=== PATIENT | male | born 1960 | race Caucasian/White ===

== ENCOUNTER → 2023-08-05 08:47 | Outpatient (REF) | payer MEDICARE, OTHER, SELFPAY | LOC: MRI 3T 08:47 | PROVIDERS: ATTENDING PHYSICIAN Specialist; FAMILY PHYSICIAN Physician Assistant Medical | DX: M25.812 Other specified joint disorders, left shoulder (principal) | CPT/HCPCS: 73221 ==

== ENCOUNTER → 2024-03-03 07:52 | Outpatient (REF) | payer MEDICARE, SELFPAY | LOC: RAD 07:52 | PROVIDERS: ATTENDING PHYSICIAN Specialist; FAMILY PHYSICIAN Physician Assistant Medical | DX: M25.512 Pain in left shoulder (principal); M75.42 Impingement syndrome of left shoulder | CPT/HCPCS: 73200 ==

== ENCOUNTER 2024-04-26 09:56 | Outpatient (RCR) | payer MEDICARE, SELFPAY | END 2024-04-26 23:59 | disposition home or self-care (01) | LOC: RPT 09:56 | PROVIDERS: ATTENDING PHYSICIAN Physician Assistant Surgical; FAMILY PHYSICIAN Physician Assistant Medical | DX: M75.32 Calcific tendinitis of left shoulder (principal); Z98.890 Other specified postprocedural states; Z73.6 Limitation of activities due to disability | CPT/HCPCS: 97010; 97110; 97140; 97162 ==

== ENCOUNTER 2024-05-28 09:59 | Outpatient (RCR) | payer MEDICARE, SELFPAY | END 2024-05-28 23:59 | disposition home or self-care (01) | LOC: RPT 09:59 | PROVIDERS: ATTENDING PHYSICIAN Physician Assistant Surgical; FAMILY PHYSICIAN Physician Assistant Medical | DX: M75.32 Calcific tendinitis of left shoulder (principal); Z47.1 Aftercare following joint replacement surgery (principal); Z96.612 Presence of left artificial shoulder joint; Z98.890 Other specified postprocedural states; Z73.6 Limitation of activities due to disability | CPT/HCPCS: 97010; 97110; 97112; 97140 ==

== ENCOUNTER 2024-06-21 09:58 | Outpatient (RCR) | payer MEDICARE, SELFPAY | END 2024-06-21 23:59 | disposition home or self-care (01) | LOC: RPT 09:58 | PROVIDERS: ATTENDING PHYSICIAN Physician Assistant Surgical; FAMILY PHYSICIAN Physician Assistant Medical | DX: Z47.1 Aftercare following joint replacement surgery (principal); Z73.6 Limitation of activities due to disability; M62.81 Muscle weakness (generalized); Z96.612 Presence of left artificial shoulder joint; M75.32 Calcific tendinitis of left shoulder; Z98.890 Other specified postprocedural states | CPT/HCPCS: 97010; 97110; 97112 ==

== ENCOUNTER → 2024-07-13 14:26 | Outpatient (REF) | payer MEDICARE, SELFPAY | LOC: HWRAD 14:26 | PROVIDERS: ATTENDING PHYSICIAN Specialist; FAMILY PHYSICIAN Physician Assistant Medical | DX: Z96.612 Presence of left artificial shoulder joint (principal) | CPT/HCPCS: 73200 ==

== ENCOUNTER 2024-08-16 10:58 | Outpatient (RCR) | payer MEDICARE, SELFPAY | END 2024-08-16 23:59 | disposition home or self-care (01) | LOC: RPT 10:58 | PROVIDERS: ATTENDING PHYSICIAN Physician Assistant Surgical; FAMILY PHYSICIAN Physician Assistant Medical | DX: Z47.1 Aftercare following joint replacement surgery (principal); Z96.612 Presence of left artificial shoulder joint; Z73.6 Limitation of activities due to disability; M62.81 Muscle weakness (generalized); M75.32 Calcific tendinitis of left shoulder; Z98.890 Other specified postprocedural states | CPT/HCPCS: 97010; 97110; 97140 ==

== ENCOUNTER → 2024-09-02 10:12 | Outpatient (REF) | payer MEDICARE, SELFPAY | LOC: SDSPAT 10:12 | PROVIDERS: ATTENDING PHYSICIAN Specialist; FAMILY PHYSICIAN Physician Assistant Medical | DX: M25.512 Pain in left shoulder (principal) | CPT/HCPCS: 36415; 93005 ==

== ENCOUNTER 2025-01-25 06:19 | Outpatient (RCR) | payer MEDICARE, SELFPAY | END 2025-01-25 23:59 | disposition home or self-care (01) | LOC: RPT 06:19 | PROVIDERS: ATTENDING PHYSICIAN Specialist; FAMILY PHYSICIAN Physician Assistant Medical | DX: M25.512 Pain in left shoulder (principal); Z73.6 Limitation of activities due to disability; M62.81 Muscle weakness (generalized); X50.0XXD Overexertion from strenuous movement or load, subsequent encounter; Z96.612 Presence of left artificial shoulder joint | CPT/HCPCS: 97010; 97110; 97112; 97162 ==

== ENCOUNTER 2025-02-25 08:05 | Outpatient (RCR) | payer MEDICARE, SELFPAY | END 2025-02-25 23:59 | disposition home or self-care (01) | LOC: RPT 08:05 | PROVIDERS: ATTENDING PHYSICIAN Specialist; FAMILY PHYSICIAN Physician Assistant Medical | DX: M25.512 Pain in left shoulder (principal); Z73.6 Limitation of activities due to disability; M62.81 Muscle weakness (generalized); X50.0XXD Overexertion from strenuous movement or load, subsequent encounter; Z96.612 Presence of left artificial shoulder joint | CPT/HCPCS: 97010; 97110; 97112 ==

== ENCOUNTER 2025-03-04 07:33 | Outpatient (RCR) | payer MEDICARE, SELFPAY | END 2025-03-04 11:03 | disposition home or self-care (01) | LOC: RPT 07:33 | PROVIDERS: ATTENDING PHYSICIAN Specialist; FAMILY PHYSICIAN Physician Assistant Medical | DX: M25.512 Pain in left shoulder (principal); Z73.6 Limitation of activities due to disability; M62.81 Muscle weakness (generalized); X50.0XXD Overexertion from strenuous movement or load, subsequent encounter; Z96.612 Presence of left artificial shoulder joint | CPT/HCPCS: 97110; 97112 ==